=== PATIENT | female | born 1940 | race African-American/Black ===

== ENCOUNTER 2018-11-05 09:51 | Emergency (ER) | payer MEDICARE ==
[~2018-11-05] VITALS: Ht 162.6 cm; Wt 50.0 kg
[2018-11-05] MEDS ORDERED: TRAMADOL 50MG TABLET PO ONE (11:00)
[2018-11-05 17:38] VITALS: BP 162/59
== END 2018-11-05 17:38 | disposition home or self-care (01) ==
LOC: ER 09:51
DX: S43.081A Other subluxation of right shoulder joint, initial encounter (principal); M25.561 Pain in right knee; E11.22 Type 2 diabetes mellitus with diabetic chronic kidney disease; I12.9 Hypertensive chronic kidney disease with stage 1 through stage 4 chronic kidney disease, or unspecified chronic kidney disease; N18.9 Chronic kidney disease, unspecified; Z94.0 Kidney transplant status; Z88.0 Allergy status to penicillin; W01.0XXA Fall on same level from slipping, tripping and stumbling without subsequent striking against object, initial encounter; Y93.89 Activity, other specified; Y92.018 Other place in single-family (private) house as the place of occurrence of the external cause
CPT/HCPCS: 23650; 73030; 73502; 73552; 73562; 73590; 73630; 93971; 99284; A4565

== ENCOUNTER 2018-12-06 19:11 | Inpatient (IN) | payer MEDICARE ==
[~2018-12-06] VITALS: Ht 165.1 cm; Wt 60.3 kg
[2018-12-06 20:37] LABS: BASOPHILS % 1.1 % (0.0-2.0); EOSINOPHILS % 0.6 % (0.0-5.0); HEMATOCRIT. 23.5 % (36.0-48.0); HEMOGLOBIN. 7.1 g/dL (12.0-16.0); MEAN CORPUSCULAR HEMOGLOBIN 28.1 pg (28.0-32.0); MEAN CORPUSCULAR VOLUME 92.8 fL (81.0-99.0); MEAN PLATELET VOLUME 10.2 fl (7.4-10.4); MONOCYTES % 6.1 % (2.0-8.0); NEUTROPHILS % 82.2 % (40.0-76.0); PLATELET 194 x1000/uL (130-400); RED BLOOD CELL COUNT 2.54 mill/uL (4.2-5.4)
[2018-12-06 20:41] LABS: CHLORIDE 117 mEq/L (98-107); PROTHROMBIN TIME 10.4 sec (9.1-11.1)
[2018-12-06] MEDS ORDERED: LEVOFLOXACIN 750MG PREMIX 150 ML IV ONE (22:15)
[2018-12-06] MEDS ORDERED: VANCOMYCIN 1 G PREMIX 200 ML IV SCH (22:30)
[2018-12-07] VITALS (10 sets, daily range): BP systolic 136–179; BP diastolic 44–63
[2018-12-07] MEDS ORDERED: LANTUSUD SUBCUT (03:59)
[2018-12-07] MEDS ORDERED: INSLIS SUBCUT (03:59)
[2018-12-07] MEDS ORDERED: CELL5 MT (04:25)
[2018-12-07] MEDS ORDERED: LABE100T5 PO (04:25)
[2018-12-07] MEDS ORDERED: CELL5 PO (04:25)
[2018-12-07] MEDS ORDERED: PRED1TAB PO (04:25)
[2018-12-07] MEDS ORDERED: DOCU-138 PO (04:25)
[2018-12-07] MEDS ORDERED: ASPI-1159 PO (04:25)
[2018-12-07] MEDS ORDERED: AMLO5TAB4 PO (04:25)
[2018-12-07] MEDS ORDERED: DEXTROSE 50% WATER 50ML SYRINGE IV PRN (05:15)
[2018-12-07] MEDS: PANTOPRAZOLE 40MG DR TABLET PO SCH (06:42)
[2018-12-07] MEDS: BLOOD SUGAR DIAGNOSTIC STRIP TEST SCH ×4 (06:43→20:23)
[2018-12-07] MEDS: INSULIN LISPRO 100 UNITS/ML SUBCUT SCH ×4 (07:37→20:45)
[2018-12-07] MEDS ORDERED: AMLODIPINE 5MG TABLET PO SCH (09:00)
[2018-12-07] MEDS: METHYLPREDNISOLONE SOD SUCC 40 MG/ML VIAL IV SCH ×2 (09:34→20:41)
[2018-12-07] MEDS ORDERED: ACETAMINOPHEN 650MG SUPP PR PRN (14:00)
[2018-12-07] MEDS ORDERED: LORAZEPAM 0.5MG TABLET PO PRN (14:00)
[2018-12-07] MEDS ORDERED: HYDROCODONE/ACETAMINOPHEN 5/325MG TABLET PO PRN (14:00)
[2018-12-07] MEDS ORDERED: ACETAMINOPHEN 325MG TABLET PO PRN (14:00)
[2018-12-07] MEDS ORDERED: DIPHENHYDRAMINE 50MG/ML VIAL IV PRN (14:00)
[2018-12-07] MEDS ORDERED: DOCUSATE SODIUM 100MG CAPSULE PO PRN (14:00)
[2018-12-07] MEDS ORDERED: ONDANSETRON HCL 4MG/2ML INJ IV PRN (14:00)
[2018-12-07 16:54] LABS: MEAN CORPUSCULAR HEMOGLOBIN 28.4 pg (28.0-32.0); MEAN CORPUSCULAR VOLUME 95.5 fL (81.0-99.0); PLATELET 183 x1000/uL (130-400); RED BLOOD CELL COUNT 2.43 mill/uL (4.2-5.4); RED CELL DISTRIBUTION WIDTH 17.1 % (11.6-14.6)
[2018-12-07 17:04] LABS: HEMATOCRIT 23.2 % (36.0-48.0); HEMOGLOBIN 6.9 g/dL (12.0-16.0)
[2018-12-07] MEDS: SODIUM CHLORIDE 0.45% 1,000 ML IV SCH (17:19)
[2018-12-07 17:24] LABS: BG CARBOXYHEMOGLOBIN 0.2 % (0.5-1.5); BG DEOXYHEMOGLOBIN 11.4 % (0.0-5.0); BG FRACTION INSPIRED OXYGEN 21; BG HCO3 ACT 19.1 mmol/L (22.0-26.0); BG METHEMOGLOBIN 0.2 % (0.0-1.5); BG OXYGEN SATURATION 88.6 % (92.0-98.5); BG OXYHEMOGLOBIN 88.2 % (94.0-97.0); BG PCO2 35.6 mmHg (35.0-45.0); BG PH 7.347 (7.350-7.450); BG PO2 60.1 mmHg (75.0-100.0); BG SAMPLE SITE LEFT BRACHIAL; BG TOTAL HEMOGLOBIN 7.4 g/dL (12.0-18.0); BG VENT MODE ROOM AIR
[2018-12-07] MEDS ORDERED: SODIUM POLYSTYRENE SULFONATE 15 G/60 ML BOT PO NR (19:30)
[2018-12-07] MEDS: MYCOPHENOLATE MOFETIL 250MG CAPSULE PO SCH (20:42)
[2018-12-07] MEDS: AMLODIPINE 5MG TABLET PO SCH (20:42)
[2018-12-07] MEDS ORDERED: VANCOMYCIN 1 G PREMIX 200 ML IV SCH (21:00)
[2018-12-07] MEDS: CLONIDINE 0.1MG TABLET PO PRN (22:41)
[2018-12-07] MEDS ORDERED: HYDRALAZINE HCL 25MG TABLET PO NR (23:45)
[2018-12-08] VITALS (8 sets, daily range): BP systolic 137–181; BP diastolic 49–63
[2018-12-08] MEDS ORDERED: VANCOMYCIN 1,750 MG in DEXT 5% WATER 500 ML IV SCH (04:00)
[2018-12-08] MEDS ORDERED: HYDRALAZINE HCL 25MG TABLET PO SCH (06:00)
[2018-12-08] MEDS: PANTOPRAZOLE 40MG DR TABLET PO SCH (06:20)
[2018-12-08] MEDS: BLOOD SUGAR DIAGNOSTIC STRIP TEST SCH ×4 (06:21→21:00)
[2018-12-08 07:59] LABS: HEMATOCRIT 27.3 % (36.0-48.0); HEMOGLOBIN 8.6 g/dL (12.0-16.0); MEAN CORPUSCULAR HEMOGLOBIN 29.1 pg (28.0-32.0); MEAN CORPUSCULAR VOLUME 92.5 fL (81.0-99.0); PLATELET 196 x1000/uL (130-400); RED BLOOD CELL COUNT 2.95 mill/uL (4.2-5.4); RED CELL DISTRIBUTION WIDTH 16.5 % (11.6-14.6)
[2018-12-08] MEDS: CLONIDINE 0.1MG TABLET PO PRN (08:15)
[2018-12-08] MEDS: AMLODIPINE 5MG TABLET PO SCH ×2 (08:15→21:00)
[2018-12-08] MEDS: MYCOPHENOLATE MOFETIL 250MG CAPSULE PO SCH (08:15)
[2018-12-08] MEDS: INSULIN LISPRO 100 UNITS/ML SUBCUT SCH ×4 (08:23→21:01)
[2018-12-08] MEDS: METHYLPREDNISOLONE SOD SUCC 40 MG/ML VIAL IV SCH ×2 (08:24→22:37)
[2018-12-08] MEDS ORDERED: HYDRALAZINE HCL 25MG TABLET PO ONE (10:30)
[2018-12-08] MEDS: LEVOFLOXACIN 250MG TABLET PO SCH (11:06)
[2018-12-08 12:16] LABS: TOTAL IRON BINDING CAPACITY 211 ug/dL (250-450)
[2018-12-08] MEDS: HYDRALAZINE HCL 25MG TABLET PO SCH ×2 (13:20→18:15)
[2018-12-08] MEDS: SODIUM CHLORIDE 0.45% 1,000 ML IV SCH (15:32)
[2018-12-08] MEDS ORDERED: SORBITOL 70% SOLN 30ML PO NR ×2 (17:00→21:00)
[2018-12-08] MEDS: FERROUS SULFATE 325MG TABLET PO SCH (18:15)
[2018-12-08] MEDS ORDERED: EPOETIN ALFA 10000UNITS/ML VIAL SUBCUT NR (21:00)
[2018-12-08] MEDS: TACROLIMUS 1MG CAPSULE PO SCH (21:00)
[2018-12-08 21:36] LABS: CLARITY URINE CLOUDY (CLEAR); COLOR URINE YELLOW (YELLOW); KETONES URINE NEGATIVE (NEGATIVE); LEUKOCYTE ESTERASE URINE NEGATIVE (NEGATIVE); NITRITE URINE NEGATIVE (NEGATIVE); OCCULT BLOOD URINE NEGATIVE (NEGATIVE); PROTEIN URINE 4+ (NEGATIVE); UROBILINOGEN URINE 0.2 E.U./dL (0.2-1.0)
[2018-12-08] MEDS ORDERED: LORAZEPAM 0.5MG TABLET PO PRN (22:00)
[2018-12-09] VITALS: BP 183/63
[2018-12-09 00:03] LABS: HEMATOCRIT 26.2 % (36.0-48.0); HEMOGLOBIN 8.3 g/dL (12.0-16.0)
[2018-12-09] MEDS: CLONIDINE 0.1MG TABLET PO PRN (01:36)
[2018-12-09] MEDS: SODIUM CHLORIDE 0.45% 1,000 ML IV SCH ×3 (01:37→20:52)
[2018-12-09] MEDS: HYDRALAZINE HCL 25MG TABLET PO SCH ×5 (02:06→23:53)
[2018-12-09] MEDS: IPRATROPIUM/ALBUTEROL 0.5-3(2.5)MG/3ML NEB HHN SCH ×4 (02:29→20:11)
[2018-12-09 04:00] VITALS: BP 179/64
[2018-12-09] MEDS: PANTOPRAZOLE 40MG DR TABLET PO SCH (06:27)
[2018-12-09] MEDS: BLOOD SUGAR DIAGNOSTIC STRIP TEST SCH ×4 (06:27→20:43)
[2018-12-09 08:00] VITALS: BP 162/54
[2018-12-09 08:26] LABS: HEMATOCRIT. 27.2 % (36.0-48.0); HEMOGLOBIN. 8.4 g/dL (12.0-16.0); MEAN CORPUSCULAR HEMOGLOBIN 28.8 pg (28.0-32.0); MEAN CORPUSCULAR VOLUME 93.9 fL (81.0-99.0); MEAN PLATELET VOLUME 10.2 fl (7.4-10.4); PLATELET 188 x1000/uL (130-400); RED CELL DISTRIBUTION WIDTH 16.4 % (11.6-14.6)
[2018-12-09] MEDS: TACROLIMUS 1MG CAPSULE PO SCH ×2 (08:39→20:43)
[2018-12-09] MEDS: METHYLPREDNISOLONE SOD SUCC 40 MG/ML VIAL IV SCH (08:39)
[2018-12-09] MEDS: FERROUS SULFATE 325MG TABLET PO SCH ×2 (08:40→18:01)
[2018-12-09] MEDS: AMLODIPINE 5MG TABLET PO SCH ×2 (08:40→20:43)
[2018-12-09] MEDS ORDERED: INSULIN GLARGINE UD 100 UNITS/ML SYR SUBCUT ONE (10:00)
[2018-12-09] MEDS: INSULIN LISPRO 100 UNITS/ML SUBCUT SCH ×3 (10:07→20:50)
[2018-12-09 12:00] VITALS: BP 171/55
[2018-12-09 12:16] LABS: PHOSPHORUS 4.4 mg/dL (2.5-4.9)
[2018-12-09] MEDS ORDERED: POTASSIUM CHLORIDE 20MEQ TABLET SR PO NR (12:45)
[2018-12-09] MEDS ORDERED: INSULIN LISPRO 100 UNITS/ML SUBCUT NR (13:00)
[2018-12-09] MEDS: CITRIC ACID/SODIUM CITRATE SOLN 30ML UDC PO SCH ×2 (13:23→18:01)
[2018-12-09 16:00] VITALS: BP 176/57
[2018-12-09 20:23] VITALS: BP 174/59
[2018-12-10 00:06] VITALS: BP 171/66
[2018-12-10 04:00] VITALS: BP 195/65
[2018-12-10] MEDS: IPRATROPIUM/ALBUTEROL 0.5-3(2.5)MG/3ML NEB HHN SCH ×4 (04:13→15:44)
[2018-12-10] MEDS: HYDRALAZINE HCL 25MG TABLET PO SCH ×3 (05:14→17:56)
[2018-12-10] MEDS: SODIUM CHLORIDE 0.45% 1,000 ML IV SCH (05:16)
[2018-12-10] MEDS: PANTOPRAZOLE 40MG DR TABLET PO SCH (06:20)
[2018-12-10] MEDS: BLOOD SUGAR DIAGNOSTIC STRIP TEST SCH ×4 (06:30→21:00)
[2018-12-10 07:13] LABS: HEMATOCRIT. 29.2 % (36.0-48.0); HEMOGLOBIN. 9.1 g/dL (12.0-16.0); MEAN CORPUSCULAR HEMOGLOBIN 28.4 pg (28.0-32.0); MEAN PLATELET VOLUME 10.6 fl (7.4-10.4); PLATELET 211 x1000/uL (130-400); RED BLOOD CELL COUNT 3.21 mill/uL (4.2-5.4); RED CELL DISTRIBUTION WIDTH 16.2 % (11.6-14.6)
[2018-12-10 07:38] LABS: PHOSPHORUS 3.9 mg/dL (2.5-4.9)
[2018-12-10 07:59] VITALS: BP 169/65
[2018-12-10 09:08] LABS: PLATELET ESTIMATE NORMAL
[2018-12-10] MEDS: FERROUS SULFATE 325MG TABLET PO SCH ×2 (09:10→17:56)
[2018-12-10] MEDS: TACROLIMUS 1MG CAPSULE PO SCH ×2 (09:11→21:00)
[2018-12-10] MEDS: AMLODIPINE 5MG TABLET PO SCH (09:11)
[2018-12-10] MEDS: CITRIC ACID/SODIUM CITRATE SOLN 30ML UDC PO SCH ×3 (09:12→17:57)
[2018-12-10] MEDS: METHYLPREDNISOLONE SOD SUCC 40 MG/ML VIAL IV SCH ×2 (09:12→18:12)
[2018-12-10] MEDS: INSULIN LISPRO 100 UNITS/ML SUBCUT SCH ×4 (09:20→21:28)
[2018-12-10] MEDS ORDERED: INSULIN GLARGINE UD 100 UNITS/ML SYR SUBCUT SCH (10:00)
[2018-12-10 10:02] LABS: BG BASE EXCESS -7.4 mmol/L (-2.0-2.0); BG CARBOXYHEMOGLOBIN 0.3 % (0.5-1.5); BG DEOXYHEMOGLOBIN 7.6 % (0.0-5.0); BG FRACTION INSPIRED OXYGEN 21; BG METHEMOGLOBIN 0.3 % (0.0-1.5); BG OXYGEN SATURATION 92.4 % (92.0-98.5); BG OXYHEMOGLOBIN 91.8 % (94.0-97.0); BG PCO2 41.8 mmHg (35.0-45.0); BG PH 7.275 (7.350-7.450); BG PO2 68.1 mmHg (75.0-100.0); BG SAMPLE SITE RIGHT RADIAL; BG TOTAL HEMOGLOBIN 10.2 g/dL (12.0-18.0); BG VENT MODE ROOM AIR
[2018-12-10 11:00] LABS: PLATELET ESTIMATE NORMAL
[2018-12-10] MEDS: LEVOFLOXACIN 250MG TABLET PO SCH (11:21)
[2018-12-10] MEDS ORDERED: INSULIN GLARGINE UD 100 UNITS/ML SYR SUBCUT NR (12:00)
[2018-12-10 12:11] VITALS: BP 175/64
[2018-12-10] MEDS: METOPROLOL TARTRATE 25MG TABLET PO SCH ×2 (13:15→21:00)
[2018-12-10] MEDS: NIFEDIPINE XL 30MG TAB PO SCH ×2 (13:15→21:00)
[2018-12-10] MEDS ORDERED: BISACODYL 10MG SUPP PR NR (16:00)
[2018-12-10 16:18] VITALS: BP 156/62
[2018-12-10] MEDS ORDERED: VANCOMYCIN 750 MG PREMIX 150 ML IV NR (17:00)
[2018-12-10] MEDS: METOCLOPRAMIDE HCL 10MG/2ML VIAL IV SCH (18:12)
[2018-12-10] MEDS: SORBITOL 70% SOLN 30ML PO SCH (19:26)
[2018-12-10 20:08] VITALS: BP 160/57
[2018-12-11 00:22] VITALS: BP 166/59
[2018-12-11] MEDS: SORBITOL 70% SOLN 30ML PO SCH ×2 (00:54→06:32)
[2018-12-11] MEDS: METOCLOPRAMIDE HCL 10MG/2ML VIAL IV SCH ×3 (00:54→12:38)
[2018-12-11] MEDS: HYDRALAZINE HCL 25MG TABLET PO SCH ×5 (00:54→23:53)
[2018-12-11] MEDS: IPRATROPIUM/ALBUTEROL 0.5-3(2.5)MG/3ML NEB HHN SCH ×6 (02:19→20:39)
[2018-12-11 04:44] VITALS: BP 166/60
[2018-12-11 06:17] LABS: BASOPHILS % 0.5 % (0.0-2.0); HEMOGLOBIN. 10.3 g/dL (12.0-16.0); LYMPHOCYTES % 9.2 % (20.0-50.0); MEAN CORPUSCULAR HEMOGLOBIN 28.8 pg (28.0-32.0); MEAN CORPUSCULAR VOLUME 89.9 fL (81.0-99.0); NEUTROPHILS % 77.3 % (40.0-76.0); PLATELET 234 x1000/uL (130-400); RED BLOOD CELL COUNT 3.57 mill/uL (4.2-5.4); RED CELL DISTRIBUTION WIDTH 15.7 % (11.6-14.6)
[2018-12-11] MEDS: PANTOPRAZOLE 40MG DR TABLET PO SCH (06:31)
[2018-12-11] MEDS: BLOOD SUGAR DIAGNOSTIC STRIP TEST SCH ×4 (06:33→21:00)
[2018-12-11] MEDS: INSULIN LISPRO 100 UNITS/ML SUBCUT SCH ×4 (07:50→21:00)
[2018-12-11 07:59] LABS: PHOSPHORUS 3.8 mg/dL (2.5-4.9)
[2018-12-11] MEDS: NIFEDIPINE XL 30MG TAB PO SCH (09:06)
[2018-12-11] MEDS: CITRIC ACID/SODIUM CITRATE SOLN 30ML UDC PO SCH ×4 (09:06→18:31)
[2018-12-11] MEDS: FERROUS SULFATE 325MG TABLET PO SCH ×3 (09:06→18:33)
[2018-12-11] MEDS: METOPROLOL TARTRATE 25MG TABLET PO SCH (09:06)
[2018-12-11] MEDS: TACROLIMUS 1MG CAPSULE PO SCH ×2 (09:08→22:10)
[2018-12-11] MEDS ORDERED: INSULIN GLARGINE UD 100 UNITS/ML SYR SUBCUT SCH (10:00)
[2018-12-11 12:13] VITALS: BP 177/58
[2018-12-11] MEDS ORDERED: POTASSIUM CHLORIDE INJ 40 MEQ in DEXT 5% WATER 250 ML IV NR (12:30)
[2018-12-11] MEDS: CLONIDINE 0.1MG TABLET PO PRN (12:39)
[2018-12-11] MEDS ORDERED: METOCLOPRAMIDE HCL 10MG/2ML VIAL IV NR (12:45)
[2018-12-11] MEDS ORDERED: SORBITOL 70% SOLN 30ML PO NR (12:45)
[2018-12-11] MEDS ORDERED: POTASSIUM CHLORIDE 20MEQ TABLET SR PO NR (12:45)
[2018-12-11] MEDS ORDERED: NIFEDIPINE XL 30MG TAB PO NR (13:45)
[2018-12-11] MEDS ORDERED: BACTERIOSTATIC SODIUM CHLORIDE 0.9% 30ML VIAL IJ ONE (13:46)
[2018-12-11] MEDS ORDERED: SIMETHICONE 40 MG/0.6 ML 30ML ONE (13:46)
[2018-12-11 15:19] VITALS: BP 144/61
[2018-12-11 16:54] VITALS: BP 174/59
[2018-12-11] MEDS ORDERED: MIDAZOLAM HCL 5 MG/5 ML VIAL IV PRN (17:02)
[2018-12-11] MEDS ORDERED: FENTANYL CITRATE/PF 50MCG/ML 2ML VIAL ONE (17:06)
[2018-12-11] MEDS ORDERED: MIDAZOLAM HCL 5 MG/5 ML VIAL ONE (17:06)
[2018-12-11] MEDS ORDERED: HYDRALAZINE 20MG/ML VIAL IV ONE (17:15)
[2018-12-11] MEDS ORDERED: HYDRALAZINE 20MG/ML VIAL ONE (17:20)
[2018-12-11] MEDS ORDERED: HYDROCODONE/ACETAMINOPHEN 5/325MG TABLET PO PRN (18:00)
[2018-12-11 20:00] VITALS: BP 150/51
[2018-12-11] MEDS ORDERED: LORAZEPAM 0.5MG TABLET PO PRN (22:00)
[2018-12-11] MEDS: METOPROLOL TARTRATE 50MG TABLET PO SCH (22:10)
[2018-12-11] MEDS: NIFEDIPINE XL 60MG TAB PO SCH (22:10)
[2018-12-11] MEDS: HYDROCORTISONE ACETATE 25MG SUPP PR SCH (22:17)
[2018-12-12] VITALS: BP 160/52
[2018-12-12] MEDS: IPRATROPIUM/ALBUTEROL 0.5-3(2.5)MG/3ML NEB HHN SCH ×3 (00:35→07:52)
[2018-12-12 04:00] VITALS: BP 153/49
[2018-12-12] MEDS: PANTOPRAZOLE 40MG DR TABLET PO SCH (06:35)
[2018-12-12] MEDS: BLOOD SUGAR DIAGNOSTIC STRIP TEST SCH ×2 (06:35→12:17)
[2018-12-12] MEDS: HYDRALAZINE HCL 25MG TABLET PO SCH ×2 (06:35→12:42)
[2018-12-12] MEDS: INSULIN LISPRO 100 UNITS/ML SUBCUT SCH ×2 (07:42→12:44)
[2018-12-12 08:00] VITALS: BP 163/55
[2018-12-12] MEDS: FERROUS SULFATE 325MG TABLET PO SCH (08:21)
[2018-12-12] MEDS: TACROLIMUS 1MG CAPSULE PO SCH (08:21)
[2018-12-12] MEDS: NIFEDIPINE XL 60MG TAB PO SCH (08:21)
[2018-12-12] MEDS: CITRIC ACID/SODIUM CITRATE SOLN 30ML UDC PO SCH ×2 (08:22→12:45)
[2018-12-12] MEDS: HYDROCORTISONE ACETATE 25MG SUPP PR SCH (08:22)
[2018-12-12] MEDS: METOPROLOL TARTRATE 50MG TABLET PO SCH (08:22)
[2018-12-12] MEDS ORDERED: PREDNISONE 1MG TABLET PO SCH (09:00)
[2018-12-12 09:05] VITALS: BP 163/55
[2018-12-12] MEDS: LEVOFLOXACIN 250MG TABLET PO SCH (12:41)
== END 2018-12-12 13:10 | disposition home or self-care (01) | DRG 871 ==
LOC: ER 19:11 → 6WST 22:25 → EDBEDREQTM 23:08 → EDBEDREQ 23:08 → ENRESERV 23:16
PROVIDERS: ADMIT Internal Medicine; ATTEND Internal Medicine
PROC: 30233N1 Transfusion of Nonautologous Red Blood Cells into Peripheral Vein, Percutaneous Approach (ICD-10-PCS; 2018-12-07)
PROC: 0DJD8ZZ Inspection of Lower Intestinal Tract, Via Natural or Artificial Opening Endoscopic (ICD-10-PCS; principal; 2018-12-11)
DX: A41.9 Sepsis, unspecified organism (principal); J96.91 Respiratory failure, unspecified with hypoxia; J18.1 Lobar pneumonia, unspecified organism; N17.0 Acute kidney failure with tubular necrosis; E44.0 Moderate protein-calorie malnutrition; K92.2 Gastrointestinal hemorrhage, unspecified; E87.0 Hyperosmolality and hypernatremia; I31.3 Pericardial effusion (noninflammatory); E87.2 Acidosis; N18.4 Chronic kidney disease, stage 4 (severe); I13.0 Hypertensive heart and chronic kidney disease with heart failure and stage 1 through stage 4 chronic kidney disease, or unspecified chronic kidney disease; Z94.0 Kidney transplant status; D63.8 Anemia in other chronic diseases classified elsewhere; I50.9 Heart failure, unspecified; E11.65 Type 2 diabetes mellitus with hyperglycemia; E11.22 Type 2 diabetes mellitus with diabetic chronic kidney disease; E11.40 Type 2 diabetes mellitus with diabetic neuropathy, unspecified; I27.20 Pulmonary hypertension, unspecified; K64.8 Other hemorrhoids; E87.6 Hypokalemia; Z68.22 Body mass index [BMI] 22.0-22.9, adult; Z88.0 Allergy status to penicillin; Z82.49 Family history of ischemic heart disease and other diseases of the circulatory system; Z83.3 Family history of diabetes mellitus; Z79.899 Other long term (current) drug therapy; Z79.82 Long term (current) use of aspirin
CPT/HCPCS: 36415; 36600; 71045; 71250; 78582; 80048; 80202; 82375; 82550; 82805; 82962; 83036; 83540; 83550; 83605; 83735; 83880; 84100; 84484; 85014; 85018; 85027; 85379; 86850; 86900; 86920; 87804; 93005; 93306; 93970; 94640; 94660; 96365; 96367; 97116; 97162; 97530; 99285; A9558; C1893; J0360; J0885; J1200; J1815; J1956; J2250; J2765; J2920; J3010; J3370; J3480; J3490; J7050; J7060; J7507; J7512; J7517; J7620; P9016

== ENCOUNTER 2019-02-05 10:57 | Inpatient (IN) | payer MEDICARE ==
[~2019-02-05] VITALS: Ht 162.6 cm; Wt 70.8 kg
[~2019-02-05 10:57] MED LIST: AMLO5TAB4 PO; ASPI-1393 PO; CELL5 PO; DOCU-138 PO; INSLIS SUBCUT; LANTUSUD SUBCUT; PRED1TAB PO
[2019-02-05 12:47] LABS: HEMATOCRIT. 27.5 % (36.0-48.0); HEMOGLOBIN. 8.3 g/dL (12.0-16.0); MEAN CORPUSCULAR HEMOGLOBIN 28.8 pg (28.0-32.0); MEAN CORPUSCULAR VOLUME 95.9 fL (81.0-99.0); PLATELET 164 x1000/uL (130-400); RED BLOOD CELL COUNT 2.87 mill/uL (4.2-5.4); RED CELL DISTRIBUTION WIDTH 17.8 % (11.6-14.6)
[2019-02-05 12:55] LABS: INR 1.1; PROTHROMBIN TIME 11.4 sec (9.6-11.0)
[2019-02-05 12:57] LABS: CHLORIDE 125 mEq/L (98-107)
[2019-02-05 13:19] LABS: PLATELET ESTIMATE NORMAL
[2019-02-05 13:20] LABS: BG BASE EXCESS -9.8 mmol/L (-2.0-2.0); BG CARBOXYHEMOGLOBIN 1.2 % (0.5-1.5); BG DEOXYHEMOGLOBIN 6.8 % (0.0-5.0); BG FRACTION INSPIRED OXYGEN 36; BG HCO3 ACT 18.5 mmol/L (22.0-26.0); BG METHEMOGLOBIN 0.3 % (0.0-1.5); BG OXYGEN SATURATION 93.1 % (92.0-98.5); BG OXYHEMOGLOBIN 91.7 % (94.0-97.0); BG PH 7.161 (7.350-7.450); BG PO2 80.3 mmHg (75.0-100.0); BG SAMPLE SITE LEFT BRACHIAL; BG TOTAL HEMOGLOBIN 9.1 g/dL (12.0-18.0); BG VENT MODE NASAL CANNULA
[2019-02-05] MEDS ORDERED: SODIUM BICARBONATE 8.4% 1 MEQ/ML 50ML SYR IV ONE ×3 (13:30→17:45)
[2019-02-05] MEDS ORDERED: IPRATROPIUM/ALBUTEROL 0.5-3(2.5)MG/3ML NEB HHN ONE ×2 (13:30→13:45)
[2019-02-05] MEDS ORDERED: LEVOFLOXACIN 750MG PREMIX 150 ML IV ONE (15:15)
[2019-02-05] MEDS ORDERED: FUROSEMIDE 40MG/4ML VIAL IVP ONE (15:15)
[2019-02-05 16:57] LABS: BG BASE EXCESS -8.5 mmol/L (-2.0-2.0); BG CARBOXYHEMOGLOBIN 0.7 % (0.5-1.5); BG DEOXYHEMOGLOBIN 11.6 % (0.0-5.0); BG HCO3 ACT 18.7 mmol/L (22.0-26.0); BG METHEMOGLOBIN 0.2 % (0.0-1.5); BG OXYGEN SATURATION 88.3 % (92.0-98.5); BG OXYHEMOGLOBIN 87.5 % (94.0-97.0); BG PCO2 46.4 mmHg (35.0-45.0); BG PH 7.223 (7.350-7.450); BG PO2 61.4 mmHg (75.0-100.0); BG SAMPLE SITE LEFT BRACHIAL; BG TOTAL HEMOGLOBIN 8.4 g/dL (12.0-18.0); BG VENT MODE NASAL CANNULA
[2019-02-05] MEDS ORDERED: ACETAMINOPHEN 650MG SUPP PR PRN (17:00)
[2019-02-05] MEDS ORDERED: DEXTROSE 50% WATER 50ML SYRINGE IV PRN (17:00)
[2019-02-05] MEDS: BLOOD SUGAR DIAGNOSTIC STRIP TEST SCH ×2 (17:00→21:00)
[2019-02-05] MEDS ORDERED: GUAIFENESIN 200MG/10ML SUGAR FREE UDC PO PRN (17:00)
[2019-02-05] MEDS ORDERED: DEXTROSE 5% WATER 1,000 ML IV SCH (17:00)
[2019-02-05] MEDS ORDERED: ONDANSETRON HCL 4MG/2ML INJ IV PRN (17:00)
[2019-02-05] MEDS ORDERED: HYDROCODONE/ACETAMINOPHEN 5/325MG TABLET PO PRN (17:00)
[2019-02-05] MEDS ORDERED: IPRATROPIUM/ALBUTEROL 0.5-3(2.5)MG/3ML NEB INH PRN (17:00)
[2019-02-05] MEDS ORDERED: DIPHENHYDRAMINE 50MG/ML VIAL IV PRN (17:00)
[2019-02-05] MEDS ORDERED: DOCUSATE SODIUM 100MG CAPSULE PO PRN (17:00)
[2019-02-05] MEDS ORDERED: LORAZEPAM 0.5MG TABLET PO PRN (17:00)
[2019-02-05] MEDS: IPRATROPIUM/ALBUTEROL 0.5-3(2.5)MG/3ML NEB INH SCH (17:00)
[2019-02-05] MEDS ORDERED: LEVOFLOXACIN 500MG PREMIX 100 ML IV SCH (17:00)
[2019-02-05] MEDS ORDERED: MAGNESIUM/ALUMINUM HYDROXIDE/SIMETHICONE 30ML UDC PO PRN (17:00)
[2019-02-05] MEDS ORDERED: ACETAMINOPHEN 325MG TABLET PO PRN (17:00)
[2019-02-05] MEDS ORDERED: NA PHOS,M-B/NA PHOS,DI-BA ENEMA 118ML PR PRN (17:00)
[2019-02-05 18:18] LABS: BG BILEVEL POS AIRWAY PRESSURE 15/5; BG CARBOXYHEMOGLOBIN 0.6 % (0.5-1.5); BG DEOXYHEMOGLOBIN 7.1 % (0.0-5.0); BG HCO3 ACT 17.9 mmol/L (22.0-26.0); BG METHEMOGLOBIN 0.2 % (0.0-1.5); BG OXYGEN SATURATION 92.8 % (92.0-98.5); BG OXYHEMOGLOBIN 92.1 % (94.0-97.0); BG PCO2 43.3 mmHg (35.0-45.0); BG PH 7.234 (7.350-7.450); BG PO2 73.9 mmHg (75.0-100.0); BG SAMPLE SITE LEFT BRACHIAL; BG TOTAL HEMOGLOBIN 8.6 g/dL (12.0-18.0); BG VENT MODE MASK - BIPAP; BG VENT RATE 14 set
[2019-02-05] MEDS: INSULIN LISPRO 100 UNITS/ML SUBCUT SCH ×2 (18:20→21:00)
[2019-02-05] MEDS: CLONIDINE 0.1MG TABLET PO PRN (19:09)
[2019-02-05] MEDS: SODIUM BICARBONATE 100 MEQ in DEXTROSE 5% WATER 1,000 ML IV SCH (20:00)
[2019-02-05] MEDS: METHYLPREDNISOLONE SOD SUCC 40 MG/ML VIAL IV SCH (20:27)
[2019-02-05 20:39] LABS: CLARITY URINE CLOUDY (CLEAR); COLOR URINE YELLOW (YELLOW); KETONES URINE TRACE (NEGATIVE); LEUKOCYTE ESTERASE URINE NEGATIVE (NEGATIVE); NITRITE URINE NEGATIVE (NEGATIVE); OCCULT BLOOD URINE NEGATIVE (NEGATIVE); PH URINE 5.5 (4.5-8.0); PROTEIN URINE 4+ (NEGATIVE); SPECIFIC GRAVITY URINE 1.018 (1.005-1.030); UROBILINOGEN URINE 0.2 E.U./dL (0.2-1.0)
[2019-02-05 21:26] LABS: *AMPHETAMINES SCREEN URINE NEGATIVE (NEGATIVE); *BARBITURATES SCREEN URINE NEGATIVE (NEGATIVE)
[2019-02-05 21:27] LABS: *BENZODIAZEPINES SCREEN URINE NEGATIVE (NEGATIVE); *COCAINE SCREEN URINE NEGATIVE (NEGATIVE); CANNABINOID URINE SCREEN NEGATIVE (NEGATIVE); METHADONE URINE SCREEN NEGATIVE (NEGATIVE); OPIATES URINE SCREEN PRESUMTIVE POSITIVE (NEGATIVE); PHENCYCLIDINE URINE SCREEN NEGATIVE (NEGATIVE)
[2019-02-05] MEDS: HYDRALAZINE 20MG/ML VIAL IV PRN (23:14)
[2019-02-06] VITALS (13 sets, daily range): BP systolic 125–179; BP diastolic 40–95
[2019-02-06] MEDS: IPRATROPIUM/ALBUTEROL 0.5-3(2.5)MG/3ML NEB INH SCH ×4 (01:05→15:00)
[2019-02-06] MEDS: SODIUM BICARBONATE 100 MEQ in DEXTROSE 5% WATER 1,000 ML IV SCH (02:20)
[2019-02-06] MEDS: HYDRALAZINE 20MG/ML VIAL IV PRN (05:52)
[2019-02-06 06:38] LABS: HEMATOCRIT. 25.9 % (36.0-48.0); MEAN CORPUSCULAR HEMOGLOBIN 29.3 pg (28.0-32.0); MEAN CORPUSCULAR VOLUME 94.4 fL (81.0-99.0); MEAN PLATELET VOLUME 9.8 fl (7.4-10.4); PLATELET 136 x1000/uL (130-400); RED BLOOD CELL COUNT 2.75 mill/uL (4.2-5.4); RED CELL DISTRIBUTION WIDTH 17.2 % (11.6-14.6)
[2019-02-06 07:00] LABS: CHLORIDE 121 mEq/L (98-107)
[2019-02-06 07:10] LABS: LDL CHOLESTEROL 72 mg/dL (5-100)
[2019-02-06 07:11] LABS: CREATINE KINASE 70 IU/L (26-192); CREATINE KINASE MB FRACTION 2.2 ng/mL (0.5-3.6); HDL CHOLESTEROL 42 mg/dL (40-59); T4 FREE 1.04 ng/dL (0.76-1.46)
[2019-02-06] MEDS: BLOOD SUGAR DIAGNOSTIC STRIP TEST SCH ×4 (08:02→21:59)
[2019-02-06] MEDS: METHYLPREDNISOLONE SOD SUCC 40 MG/ML VIAL IV SCH ×2 (08:51→20:24)
[2019-02-06] MEDS: FAMOTIDINE 20MG/2ML VIAL IV SCH (08:51)
[2019-02-06] MEDS: INSULIN LISPRO 100 UNITS/ML SUBCUT SCH ×4 (08:53→21:00)
[2019-02-06 08:59] LABS: BG BASE EXCESS -8.3 mmol/L (-2.0-2.0); BG BILEVEL POS AIRWAY PRESSURE ST=15/5; BG CARBOXYHEMOGLOBIN 0.2 % (0.5-1.5); BG FRACTION INSPIRED OXYGEN 50; BG METHEMOGLOBIN 0.3 % (0.0-1.5); BG OXYHEMOGLOBIN 97.5 % (94.0-97.0); BG PH 7.271 (7.350-7.450); BG PRESSURE SUPPORT 10; BG SAMPLE SITE LEFT BRACHIAL; BG VENT MODE MASK - BIPAP; BG VENT RATE 14 set
[2019-02-06] MEDS ORDERED: IPRATROPIUM/ALBUTEROL 0.5-3(2.5)MG/3ML NEB HHN ONE (11:00)
[2019-02-06] MEDS ORDERED: SODIUM BICARBONATE 8.4% 1 MEQ/ML 50ML SYR IV ONE (11:00)
[2019-02-06] MEDS ORDERED: DEXTROSE 50% WATER 50ML SYRINGE IV ONE (11:30)
[2019-02-06] MEDS ORDERED: INSULIN REGULAR (HUMULIN R) UD 100 UNITS/ML SYR IV NR (11:30)
[2019-02-06] MEDS ORDERED: SODIUM POLYSTYRENE SULFONATE 15 G/60 ML BOT PO NR (12:00)
[2019-02-06 14:33] LABS: PLATELET ESTIMATE NORMAL
[2019-02-06] MEDS: TACROLIMUS 1MG CAPSULE PO SCH (17:28)
[2019-02-06] MEDS: MYCOPHENOLATE MOFETIL 500MG TABLET PO SCH (21:59)
[2019-02-07] VITALS (16 sets, daily range): BP systolic 104–190; BP diastolic 48–93
[2019-02-07] MEDS: IPRATROPIUM/ALBUTEROL 0.5-3(2.5)MG/3ML NEB INH SCH ×4 (03:04→21:53)
[2019-02-07 06:18] LABS: HEMATOCRIT. 27.3 % (36.0-48.0); HEMOGLOBIN. 8.6 g/dL (12.0-16.0); MEAN CORPUSCULAR HEMOGLOBIN 29.1 pg (28.0-32.0); MEAN CORPUSCULAR VOLUME 92.3 fL (81.0-99.0); MEAN PLATELET VOLUME 11.5 fl (7.4-10.4); PLATELET 185 x1000/uL (130-400); RED BLOOD CELL COUNT 2.96 mill/uL (4.2-5.4); RED CELL DISTRIBUTION WIDTH 17.5 % (11.6-14.6)
[2019-02-07 08:02] LABS: BG BASE EXCESS -4.1 mmol/L (-2.0-2.0); BG CARBOXYHEMOGLOBIN 0.3 % (0.5-1.5); BG DEOXYHEMOGLOBIN 6.8 % (0.0-5.0); BG FRACTION INSPIRED OXYGEN 28; BG HCO3 ACT 21.5 mmol/L (22.0-26.0); BG METHEMOGLOBIN 0.2 % (0.0-1.5); BG OXYGEN SATURATION 93.2 % (92.0-98.5); BG OXYHEMOGLOBIN 92.7 % (94.0-97.0); BG PCO2 41.1 mmHg (35.0-45.0); BG PH 7.336 (7.350-7.450); BG PO2 71.9 mmHg (75.0-100.0); BG SAMPLE SITE LEFT BRACHIAL; BG TOTAL HEMOGLOBIN 8.9 g/dL (12.0-18.0); BG VENT MODE NASAL CANNULA
[2019-02-07] MEDS: BLOOD SUGAR DIAGNOSTIC STRIP TEST SCH ×4 (08:09→21:19)
[2019-02-07] MEDS: FAMOTIDINE 20MG/2ML VIAL IV SCH (08:26)
[2019-02-07] MEDS: METHYLPREDNISOLONE SOD SUCC 40 MG/ML VIAL IV SCH ×2 (08:26→20:42)
[2019-02-07] MEDS: TACROLIMUS 1MG CAPSULE PO SCH ×2 (08:27→17:31)
[2019-02-07] MEDS: MYCOPHENOLATE MOFETIL 500MG TABLET PO SCH ×2 (08:27→21:33)
[2019-02-07] MEDS: INSULIN LISPRO 100 UNITS/ML SUBCUT SCH ×4 (08:35→21:35)
[2019-02-07] MEDS: HYDRALAZINE 20MG/ML VIAL IV PRN (09:55)
[2019-02-07 10:43] LABS: PLATELET ESTIMATE NORMAL
[2019-02-07] MEDS ORDERED: AMLODIPINE 5MG TABLET PO NR (11:00)
[2019-02-07] MEDS ORDERED: SODIUM POLYSTYRENE SULFONATE 15 G/60 ML BOT PO NR (12:30)
[2019-02-07] MEDS ORDERED: DEXTROSE 5% WATER 1,000 ML IV SCH (12:45)
[2019-02-07] MEDS: CITRIC ACID/SODIUM CITRATE SOLN 15ML UDC PO SCH ×2 (12:53→17:31)
[2019-02-07] MEDS: LEVOFLOXACIN 250MG PREMIX 50 ML IV SCH (14:07)
[2019-02-07] MEDS ORDERED: LEVOFLOXACIN 250MG PREMIX 50 ML IV SCH (16:00)
[2019-02-07] MEDS ORDERED: EPOETIN ALFA 10000UNITS/ML VIAL SUBCUT NR (21:00)
[2019-02-08] VITALS (16 sets, daily range): BP systolic 120–213; BP diastolic 38–94
[2019-02-08] MEDS: IPRATROPIUM/ALBUTEROL 0.5-3(2.5)MG/3ML NEB INH SCH ×4 (02:52→21:51)
[2019-02-08] MEDS: HYDRALAZINE 20MG/ML VIAL IV PRN (06:38)
[2019-02-08] MEDS: BLOOD SUGAR DIAGNOSTIC STRIP TEST SCH ×4 (07:30→21:59)
[2019-02-08 07:34] LABS: HEMATOCRIT 25.5 % (36.0-48.0); HEMOGLOBIN 7.9 g/dL (12.0-16.0); MEAN CORPUSCULAR VOLUME 93.4 fL (81.0-99.0); PLATELET 174 x1000/uL (130-400); RED BLOOD CELL COUNT 2.73 mill/uL (4.2-5.4); RED CELL DISTRIBUTION WIDTH 17.3 % (11.6-14.6)
[2019-02-08] MEDS: INSULIN LISPRO 100 UNITS/ML SUBCUT SCH ×4 (08:28→22:08)
[2019-02-08 08:29] LABS: BG BASE EXCESS -3.9 mmol/L (-2.0-2.0); BG CARBOXYHEMOGLOBIN 0.7 % (0.5-1.5); BG DEOXYHEMOGLOBIN 5.2 % (0.0-5.0); BG FRACTION INSPIRED OXYGEN 32; BG HCO3 ACT 20.9 mmol/L (22.0-26.0); BG METHEMOGLOBIN 0.2 % (0.0-1.5); BG OXYGEN SATURATION 94.8 % (92.0-98.5); BG OXYHEMOGLOBIN 93.9 % (94.0-97.0); BG PCO2 36.8 mmHg (35.0-45.0); BG PH 7.373 (7.350-7.450); BG PO2 74.8 mmHg (75.0-100.0); BG SAMPLE SITE LEFT BRACHIAL; BG TOTAL HEMOGLOBIN 8.7 g/dL (12.0-18.0); BG VENT MODE NASAL CANNULA
[2019-02-08] MEDS ORDERED: FUROSEMIDE 20MG/2ML VIAL IVP NR (08:30)
[2019-02-08] MEDS ORDERED: AMLODIPINE 5MG TABLET PO SCH (09:00)
[2019-02-08] MEDS: MYCOPHENOLATE MOFETIL 500MG TABLET PO SCH ×2 (09:32→21:59)
[2019-02-08] MEDS: CITRIC ACID/SODIUM CITRATE SOLN 15ML UDC PO SCH ×3 (09:32→17:08)
[2019-02-08] MEDS: FAMOTIDINE 20MG/2ML VIAL IV SCH (09:32)
[2019-02-08] MEDS: TACROLIMUS 1MG CAPSULE PO SCH ×2 (09:32→17:08)
[2019-02-08] MEDS: METHYLPREDNISOLONE SOD SUCC 40 MG/ML VIAL IV SCH ×2 (10:58→21:59)
[2019-02-08] MEDS: CLONIDINE 0.1MG TABLET PO SCH ×2 (12:53→21:59)
[2019-02-08] MEDS: AMLODIPINE 5MG TABLET PO SCH (21:59)
[2019-02-09] VITALS (19 sets, daily range): BP systolic 140–205; BP diastolic 49–99
[2019-02-09] MEDS: IPRATROPIUM/ALBUTEROL 0.5-3(2.5)MG/3ML NEB INH SCH ×4 (01:55→21:57)
[2019-02-09] MEDS: HYDRALAZINE 20MG/ML VIAL IV PRN ×2 (02:23→10:05)
[2019-02-09] MEDS: CLONIDINE 0.1MG TABLET PO PRN (04:28)
[2019-02-09 06:56] LABS: HEMATOCRIT 28.7 % (36.0-48.0); HEMOGLOBIN 9.2 g/dL (12.0-16.0); MEAN CORPUSCULAR HEMOGLOBIN 29.4 pg (28.0-32.0); MEAN CORPUSCULAR VOLUME 91.8 fL (81.0-99.0); PLATELET 142 x1000/uL (130-400); RED BLOOD CELL COUNT 3.13 mill/uL (4.2-5.4); RED CELL DISTRIBUTION WIDTH 17.6 % (11.6-14.6)
[2019-02-09] MEDS: CLONIDINE 0.1MG TABLET PO SCH ×3 (07:01→22:50)
[2019-02-09] MEDS: BLOOD SUGAR DIAGNOSTIC STRIP TEST SCH ×4 (07:30→21:00)
[2019-02-09] MEDS: CITRIC ACID/SODIUM CITRATE SOLN 15ML UDC PO SCH ×3 (08:40→16:43)
[2019-02-09] MEDS: METHYLPREDNISOLONE SOD SUCC 40 MG/ML VIAL IV SCH (08:40)
[2019-02-09] MEDS: MYCOPHENOLATE MOFETIL 500MG TABLET PO SCH ×2 (08:40→22:48)
[2019-02-09] MEDS: FAMOTIDINE 20MG/2ML VIAL IV SCH (08:40)
[2019-02-09] MEDS: AMLODIPINE 5MG TABLET PO SCH ×2 (08:41→22:50)
[2019-02-09] MEDS: TACROLIMUS 1MG CAPSULE PO SCH ×2 (08:42→16:44)
[2019-02-09] MEDS: INSULIN LISPRO 100 UNITS/ML SUBCUT SCH ×4 (09:06→23:31)
[2019-02-09] MEDS ORDERED: SODIUM BICARBONATE 4% (2.4MEQ) 5ML VIAL IV ONE (10:51)
[2019-02-09] MEDS: LEVOFLOXACIN 250MG PREMIX 50 ML IV SCH (13:37)
[2019-02-09] MEDS: HYDRALAZINE HCL 50MG TABLET PO SCH ×2 (13:38→22:49)
[2019-02-09 15:37] LABS: BG BASE EXCESS -3.4 mmol/L (-2.0-2.0); BG CARBOXYHEMOGLOBIN 0.5 % (0.5-1.5); BG DEOXYHEMOGLOBIN 10.5 % (0.0-5.0); BG METHEMOGLOBIN 0.1 % (0.0-1.5); BG OXYGEN SATURATION 89.4 % (92.0-98.5); BG OXYHEMOGLOBIN 88.9 % (94.0-97.0); BG PCO2 40.6 mmHg (35.0-45.0); BG PH 7.351 (7.350-7.450); BG PO2 58.1 mmHg (75.0-100.0); BG SAMPLE SITE LEFT BRACHIAL; BG TOTAL HEMOGLOBIN 10.6 g/dL (12.0-18.0); BG VENT MODE ROOM AIR
[2019-02-09] MEDS: PREDNISONE 5MG TABLET PO SCH (16:43)
[2019-02-10] VITALS (11 sets, daily range): BP systolic 147–187; BP diastolic 46–77
[2019-02-10] MEDS: IPRATROPIUM/ALBUTEROL 0.5-3(2.5)MG/3ML NEB INH SCH ×5 (02:52→22:52)
[2019-02-10] MEDS: HYDRALAZINE 20MG/ML VIAL IV PRN ×2 (03:27→15:42)
[2019-02-10] MEDS: CLONIDINE 0.1MG TABLET PO SCH ×4 (03:28→17:46)
[2019-02-10] MEDS: HYDRALAZINE HCL 50MG TABLET PO SCH ×3 (06:19→21:08)
[2019-02-10] MEDS: BLOOD SUGAR DIAGNOSTIC STRIP TEST SCH ×4 (07:56→21:07)
[2019-02-10 08:44] LABS: HEMATOCRIT 30.9 % (36.0-48.0); MEAN CORPUSCULAR HEMOGLOBIN 29.2 pg (28.0-32.0); MEAN CORPUSCULAR VOLUME 90.6 fL (81.0-99.0); PLATELET 111 x1000/uL (130-400); RED BLOOD CELL COUNT 3.41 mill/uL (4.2-5.4); RED CELL DISTRIBUTION WIDTH 17.2 % (11.6-14.6)
[2019-02-10] MEDS ORDERED: METHYLPREDNISOLONE SOD SUCC 40 MG/ML VIAL IV SCH (09:00)
[2019-02-10] MEDS: FAMOTIDINE 20MG/2ML VIAL IV SCH (09:50)
[2019-02-10] MEDS: AMLODIPINE 5MG TABLET PO SCH ×2 (09:50→21:02)
[2019-02-10] MEDS: MYCOPHENOLATE MOFETIL 500MG TABLET PO SCH ×2 (09:50→21:06)
[2019-02-10] MEDS: TACROLIMUS 1MG CAPSULE PO SCH ×2 (09:50→17:46)
[2019-02-10] MEDS: PREDNISONE 5MG TABLET PO SCH (09:50)
[2019-02-10] MEDS: INSULIN LISPRO 100 UNITS/ML SUBCUT SCH ×4 (09:52→21:07)
[2019-02-10] MEDS: CITRIC ACID/SODIUM CITRATE SOLN 15ML UDC PO SCH ×3 (09:55→17:47)
[2019-02-10] MEDS ORDERED: SODIUM BICARBONATE 4% (2.4MEQ) 5ML VIAL IV ONE (10:45)
[2019-02-11] VITALS (12 sets, daily range): BP systolic 123–183; BP diastolic 42–96
[2019-02-11] MEDS: CLONIDINE 0.1MG TABLET PO SCH ×5 (00:37→23:06)
[2019-02-11] MEDS: IPRATROPIUM/ALBUTEROL 0.5-3(2.5)MG/3ML NEB INH SCH ×4 (02:31→21:17)
[2019-02-11] MEDS: HYDRALAZINE HCL 50MG TABLET PO SCH ×3 (06:22→21:11)
[2019-02-11 07:28] LABS: HEMATOCRIT 31.9 % (36.0-48.0); HEMOGLOBIN 10.3 g/dL (12.0-16.0); MEAN CORPUSCULAR HEMOGLOBIN 29.5 pg (28.0-32.0); MEAN CORPUSCULAR VOLUME 91.4 fL (81.0-99.0); PLATELET 117 x1000/uL (130-400); RED CELL DISTRIBUTION WIDTH 17.1 % (11.6-14.6)
[2019-02-11] MEDS: BLOOD SUGAR DIAGNOSTIC STRIP TEST SCH ×4 (07:30→21:00)
[2019-02-11] MEDS: CITRIC ACID/SODIUM CITRATE SOLN 15ML UDC PO SCH ×3 (08:33→18:30)
[2019-02-11] MEDS: AMLODIPINE 5MG TABLET PO SCH ×2 (08:35→21:12)
[2019-02-11] MEDS: MYCOPHENOLATE MOFETIL 500MG TABLET PO SCH ×2 (08:35→21:05)
[2019-02-11] MEDS: TACROLIMUS 1MG CAPSULE PO SCH ×2 (08:35→18:30)
[2019-02-11] MEDS: PREDNISONE 5MG TABLET PO SCH (08:35)
[2019-02-11] MEDS: FAMOTIDINE 20MG/2ML VIAL IV SCH (08:35)
[2019-02-11] MEDS: INSULIN LISPRO 100 UNITS/ML SUBCUT SCH ×4 (08:46→21:21)
[2019-02-11] MEDS: LEVOFLOXACIN 500MG TABLET PO SCH (11:19)
[2019-02-11] MEDS ORDERED: INSULIN GLARGINE UD 100 UNITS/ML SYR SUBCUT SCH (22:00)
[2019-02-12] VITALS (22 sets, daily range): BP systolic 98–141; BP diastolic 31–80
[2019-02-12] MEDS: IPRATROPIUM/ALBUTEROL 0.5-3(2.5)MG/3ML NEB INH SCH ×4 (02:35→22:08)
[2019-02-12] MEDS: HYDRALAZINE HCL 50MG TABLET PO SCH ×3 (05:35→22:37)
[2019-02-12] MEDS: CLONIDINE 0.1MG TABLET PO SCH ×3 (05:35→17:57)
[2019-02-12 06:41] LABS: HEMATOCRIT. 30.6 % (36.0-48.0); HEMOGLOBIN. 9.8 g/dL (12.0-16.0); MEAN CORPUSCULAR VOLUME 90.6 fL (81.0-99.0); MEAN PLATELET VOLUME 9.7 fl (7.4-10.4); PLATELET 117 x1000/uL (130-400); RED BLOOD CELL COUNT 3.38 mill/uL (4.2-5.4); RED CELL DISTRIBUTION WIDTH 17.1 % (11.6-14.6)
[2019-02-12 06:59] LABS: CHLORIDE 108 mEq/L (98-107)
[2019-02-12] MEDS: INSULIN LISPRO 100 UNITS/ML SUBCUT SCH ×4 (08:00→20:19)
[2019-02-12] MEDS: BLOOD SUGAR DIAGNOSTIC STRIP TEST SCH ×4 (08:05→20:06)
[2019-02-12] MEDS: FAMOTIDINE 20MG/2ML VIAL IV SCH (08:06)
[2019-02-12] MEDS ORDERED: FENTANYL CITRATE/PF 50MCG/ML 2ML VIAL ONE (08:07)
[2019-02-12] MEDS ORDERED: LIDOCAINE HCL 1% 20ML VIAL (Pyxis) INJ ONE (08:14)
[2019-02-12] MEDS ORDERED: SODIUM BICARBONATE 4% (2.4MEQ) 5ML VIAL IV ONE (08:14)
[2019-02-12] MEDS: CITRIC ACID/SODIUM CITRATE SOLN 15ML UDC PO SCH ×3 (09:00→17:00)
[2019-02-12] MEDS ORDERED: FENTANYL CITRATE/PF 50MCG/ML 2ML VIAL IV ONE ×2 (09:00)
[2019-02-12] MEDS: AMLODIPINE 5MG TABLET PO SCH (09:00)
[2019-02-12] MEDS: TACROLIMUS 1MG CAPSULE PO SCH ×2 (09:00→17:47)
[2019-02-12] MEDS: MYCOPHENOLATE MOFETIL 500MG TABLET PO SCH ×2 (09:00→20:19)
[2019-02-12 11:40] LABS: HEMATOCRIT 29.4 % (36.0-48.0); HEMOGLOBIN 9.4 g/dL (12.0-16.0)
[2019-02-12] MEDS: PREDNISONE 5MG TABLET PO SCH (13:42)
[2019-02-12] MEDS: ALBUMIN HUMAN 12.5GM/50ML (25%) IV SCH (13:42)
[2019-02-12] MEDS: DOCUSATE SODIUM 100MG CAPSULE PO SCH ×2 (15:30→17:00)
[2019-02-12] MEDS ORDERED: HYDROCODONE/ACETAMINOPHEN 5/325MG TABLET PO PRN (15:30)
[2019-02-12 20:09] LABS: PLATELET ESTIMATE DECREASED
[2019-02-12] MEDS: INSULIN GLARGINE UD 100 UNITS/ML SYR SUBCUT SCH (22:35)
[2019-02-13] VITALS (11 sets, daily range): BP systolic 116–187; BP diastolic 41–68
[2019-02-13] MEDS: CLONIDINE 0.1MG TABLET PO SCH ×5 (00:58→23:20)
[2019-02-13] MEDS: ALBUMIN HUMAN 12.5GM/50ML (25%) IV SCH ×2 (01:00→13:51)
[2019-02-13] MEDS: IPRATROPIUM/ALBUTEROL 0.5-3(2.5)MG/3ML NEB INH SCH ×4 (01:36→21:24)
[2019-02-13] MEDS: HYDRALAZINE HCL 50MG TABLET PO SCH ×3 (06:34→20:42)
[2019-02-13 07:06] LABS: HEMATOCRIT. 27.3 % (36.0-48.0); MEAN CORPUSCULAR HEMOGLOBIN 29.7 pg (28.0-32.0); MEAN CORPUSCULAR VOLUME 90.3 fL (81.0-99.0); MEAN PLATELET VOLUME 9.7 fl (7.4-10.4); PLATELET 107 x1000/uL (130-400); RED BLOOD CELL COUNT 3.02 mill/uL (4.2-5.4); RED CELL DISTRIBUTION WIDTH 17.3 % (11.6-14.6)
[2019-02-13] MEDS: INSULIN LISPRO 100 UNITS/ML SUBCUT SCH ×4 (08:00→20:49)
[2019-02-13] MEDS: BLOOD SUGAR DIAGNOSTIC STRIP TEST SCH ×4 (08:18→20:42)
[2019-02-13] MEDS: CITRIC ACID/SODIUM CITRATE SOLN 15ML UDC PO SCH ×3 (08:32→17:15)
[2019-02-13] MEDS: TACROLIMUS 1MG CAPSULE PO SCH ×2 (08:32→17:14)
[2019-02-13] MEDS: MYCOPHENOLATE MOFETIL 500MG TABLET PO SCH ×2 (08:32→20:42)
[2019-02-13] MEDS: DOCUSATE SODIUM 100MG CAPSULE PO SCH ×2 (08:32→17:14)
[2019-02-13] MEDS: PREDNISONE 5MG TABLET PO SCH (08:32)
[2019-02-13] MEDS: FAMOTIDINE 20MG/2ML VIAL IV SCH (08:32)
[2019-02-13] MEDS: AMLODIPINE 5MG TABLET PO SCH (08:37)
[2019-02-13 10:35] LABS: PLATELET ESTIMATE SLIGHTLY DECREASED
[2019-02-13] MEDS: LEVOFLOXACIN 500MG TABLET PO SCH (11:38)
[2019-02-13] MEDS: SODIUM CHLORIDE 0.9% 1,000 ML IV SCH (13:34)
[2019-02-13] MEDS: CLONIDINE 0.1MG TABLET PO PRN (20:42)
[2019-02-13] MEDS: INSULIN GLARGINE UD 100 UNITS/ML SYR SUBCUT SCH (20:50)
[2019-02-14] VITALS (9 sets, daily range): BP systolic 127–190; BP diastolic 38–117
[2019-02-14] MEDS: IPRATROPIUM/ALBUTEROL 0.5-3(2.5)MG/3ML NEB INH SCH ×4 (02:50→22:19)
[2019-02-14] MEDS: ALBUMIN HUMAN 12.5GM/50ML (25%) IV SCH (03:15)
[2019-02-14] MEDS: CLONIDINE 0.1MG TABLET PO SCH ×3 (05:54→18:35)
[2019-02-14] MEDS: HYDRALAZINE HCL 50MG TABLET PO SCH ×3 (05:55→20:51)
[2019-02-14 07:32] LABS: HEMATOCRIT. 26.2 % (36.0-48.0); HEMOGLOBIN. 8.5 g/dL (12.0-16.0); MEAN CORPUSCULAR HEMOGLOBIN 29.4 pg (28.0-32.0); MEAN CORPUSCULAR VOLUME 90.4 fL (81.0-99.0); MEAN PLATELET VOLUME 9.6 fl (7.4-10.4); PLATELET 93 x1000/uL (130-400); RED CELL DISTRIBUTION WIDTH 17.6 % (11.6-14.6)
[2019-02-14 07:46] LABS: CHLORIDE 106 mEq/L (98-107)
[2019-02-14] MEDS: INSULIN LISPRO 100 UNITS/ML SUBCUT SCH ×4 (08:00→22:06)
[2019-02-14] MEDS: BLOOD SUGAR DIAGNOSTIC STRIP TEST SCH ×4 (08:01→21:00)
[2019-02-14 08:09] LABS: PHOSPHORUS 5.9 mg/dL (2.5-4.9)
[2019-02-14] MEDS: FAMOTIDINE 20MG/2ML VIAL IV SCH (08:22)
[2019-02-14] MEDS: MYCOPHENOLATE MOFETIL 500MG TABLET PO SCH ×2 (08:22→20:51)
[2019-02-14] MEDS: DOCUSATE SODIUM 100MG CAPSULE PO SCH ×2 (08:22→18:36)
[2019-02-14] MEDS: SODIUM CHLORIDE 0.9% 1,000 ML IV SCH (08:22)
[2019-02-14] MEDS: CITRIC ACID/SODIUM CITRATE SOLN 15ML UDC PO SCH ×3 (08:22→18:35)
[2019-02-14] MEDS: TACROLIMUS 1MG CAPSULE PO SCH ×2 (08:32→18:35)
[2019-02-14] MEDS: PREDNISONE 5MG TABLET PO SCH (08:32)
[2019-02-14] MEDS: AMLODIPINE 5MG TABLET PO SCH (08:33)
[2019-02-14 10:48] LABS: PLATELET ESTIMATE SLIGHTLY DECREASED
[2019-02-15] VITALS: BP 189/48
[2019-02-15] MEDS: CLONIDINE 0.1MG TABLET PO SCH ×3 (01:23→12:38)
[2019-02-15] MEDS: INSULIN GLARGINE UD 100 UNITS/ML SYR SUBCUT SCH ×2 (01:27→22:01)
[2019-02-15 04:00] VITALS: BP 156/63
[2019-02-15] MEDS: IPRATROPIUM/ALBUTEROL 0.5-3(2.5)MG/3ML NEB INH SCH ×4 (05:16→20:38)
[2019-02-15] MEDS: HYDRALAZINE HCL 50MG TABLET PO SCH ×3 (05:31→21:59)
[2019-02-15 08:01] VITALS: BP 142/33
[2019-02-15] MEDS: INSULIN LISPRO 100 UNITS/ML SUBCUT SCH ×4 (08:10→22:00)
[2019-02-15] MEDS: DOCUSATE SODIUM 100MG CAPSULE PO SCH ×2 (08:37→18:17)
[2019-02-15] MEDS: TACROLIMUS 1MG CAPSULE PO SCH ×2 (08:37→18:04)
[2019-02-15] MEDS: MYCOPHENOLATE MOFETIL 500MG TABLET PO SCH ×2 (08:37→21:59)
[2019-02-15] MEDS: AMLODIPINE 5MG TABLET PO SCH (08:37)
[2019-02-15] MEDS: PREDNISONE 5MG TABLET PO SCH (08:37)
[2019-02-15] MEDS: BLOOD SUGAR DIAGNOSTIC STRIP TEST SCH ×4 (08:38→21:49)
[2019-02-15] MEDS: FAMOTIDINE 20MG/2ML VIAL IV SCH (09:00)
[2019-02-15] MEDS: CITRIC ACID/SODIUM CITRATE SOLN 15ML UDC PO SCH ×3 (10:47→18:04)
[2019-02-15 11:57] VITALS: BP 207/54
[2019-02-15] MEDS ORDERED: FUROSEMIDE 20MG/2ML VIAL IVP NR (12:45)
[2019-02-15 17:06] VITALS: BP 130/92
[2019-02-15] MEDS: CLONIDINE 0.2MG TABLET PO SCH ×2 (18:12→21:59)
[2019-02-15 20:00] VITALS: BP 172/63
[2019-02-15 21:41] LABS: HEMATOCRIT. 25.9 % (36.0-48.0); HEMOGLOBIN. 8.4 g/dL (12.0-16.0); MEAN CORPUSCULAR HEMOGLOBIN 29.9 pg (28.0-32.0); PLATELET 91 x1000/uL (130-400); RED BLOOD CELL COUNT 2.82 mill/uL (4.2-5.4); RED CELL DISTRIBUTION WIDTH 17.3 % (11.6-14.6)
[2019-02-15 21:56] LABS: PLATELET ESTIMATE DECREASED
[2019-02-16] VITALS: BP 154/55
[2019-02-16] MEDS: IPRATROPIUM/ALBUTEROL 0.5-3(2.5)MG/3ML NEB INH SCH ×2 (01:40→10:06)
[2019-02-16 04:00] VITALS: BP 152/56
[2019-02-16] MEDS: BLOOD SUGAR DIAGNOSTIC STRIP TEST SCH ×3 (06:37→17:25)
[2019-02-16] MEDS: HYDRALAZINE HCL 50MG TABLET PO SCH (06:41)
[2019-02-16] MEDS: CLONIDINE 0.2MG TABLET PO SCH ×2 (06:42→14:07)
[2019-02-16 08:00] VITALS: BP 173/50
[2019-02-16] MEDS: INSULIN LISPRO 100 UNITS/ML SUBCUT SCH ×3 (08:10→17:25)
[2019-02-16] MEDS: DOCUSATE SODIUM 100MG CAPSULE PO SCH ×2 (08:57→17:24)
[2019-02-16] MEDS: AMLODIPINE 5MG TABLET PO SCH (08:57)
[2019-02-16] MEDS: FAMOTIDINE 20MG/2ML VIAL IV SCH (08:57)
[2019-02-16] MEDS: MYCOPHENOLATE MOFETIL 500MG TABLET PO SCH (08:57)
[2019-02-16] MEDS: CITRIC ACID/SODIUM CITRATE SOLN 15ML UDC PO SCH ×3 (09:04→17:27)
[2019-02-16] MEDS: PREDNISONE 5MG TABLET PO SCH (09:28)
[2019-02-16] MEDS: TACROLIMUS 1MG CAPSULE PO SCH ×2 (09:28→17:23)
[2019-02-16 12:00] VITALS: BP 132/49
[2019-02-16] MEDS ORDERED: HYDRALAZINE HCL 100MG TABLET PO SCH (14:00)
[2019-02-16 16:00] VITALS: BP 134/43
[2019-02-16 17:36] VITALS: BP 134/43
[2019-02-16] MEDS ORDERED: AMLODIPINE 5MG TABLET PO SCH (21:00)
== END 2019-02-16 20:27 | DRG 871 ==
LOC: ER 10:57 → EDBEDREQ 15:54 → EDBEDREQSVC 15:54 → EDBEDREQTM 15:54 → ENRESERV 20:36 → 5EST 02-06 00:36 → 7WST 02-14 17:42
PROVIDERS: ADMIT Internal Medicine; ATTEND Internal Medicine
PROC: 02HV33Z Insertion of Infusion Device into Superior Vena Cava, Percutaneous Approach (ICD-10-PCS; 2019-02-05)
PROC: B5181ZA Fluoroscopy of Superior Vena Cava using Low Osmolar Contrast, Guidance (ICD-10-PCS; 2019-02-05)
PROC: B548ZZA Ultrasonography of Superior Vena Cava, Guidance (ICD-10-PCS; 2019-02-05)
PROC: 5A09357 Assistance with Respiratory Ventilation, Less than 24 Consecutive Hours, Continuous Positive Airway Pressure (ICD-10-PCS; 2019-02-05)
PROC: 5A09357 Assistance with Respiratory Ventilation, Less than 24 Consecutive Hours, Continuous Positive Airway Pressure (ICD-10-PCS; 2019-02-07)
PROC: 0W993ZZ Drainage of Right Pleural Cavity, Percutaneous Approach (ICD-10-PCS; 2019-02-09)
PROC: 30233N1 Transfusion of Nonautologous Red Blood Cells into Peripheral Vein, Percutaneous Approach (ICD-10-PCS; 2019-02-09)
PROC: 0W9B3ZZ Drainage of Left Pleural Cavity, Percutaneous Approach (ICD-10-PCS; principal; 2019-02-10)
PROC: 0TB04ZX Excision of Right Kidney, Percutaneous Endoscopic Approach, Diagnostic (ICD-10-PCS; 2019-02-12)
DX: A41.9 Sepsis, unspecified organism (principal); G93.41 Metabolic encephalopathy; N17.0 Acute kidney failure with tubular necrosis; J18.1 Lobar pneumonia, unspecified organism; J96.01 Acute respiratory failure with hypoxia; J96.02 Acute respiratory failure with hypercapnia; I31.3 Pericardial effusion (noninflammatory); E87.0 Hyperosmolality and hypernatremia; E87.4 Mixed disorder of acid-base balance; I13.2 Hypertensive heart and chronic kidney disease with heart failure and with stage 5 chronic kidney disease, or end stage renal disease; E72.4 Disorders of ornithine metabolism; N18.4 Chronic kidney disease, stage 4 (severe); I82.721 Chronic embolism and thrombosis of deep veins of right upper extremity; Z94.0 Kidney transplant status; K72.90 Hepatic failure, unspecified without coma; E86.0 Dehydration; E87.5 Hyperkalemia; I50.9 Heart failure, unspecified; E11.22 Type 2 diabetes mellitus with diabetic chronic kidney disease; D64.9 Anemia, unspecified; E11.649 Type 2 diabetes mellitus with hypoglycemia without coma; I27.20 Pulmonary hypertension, unspecified; E11.40 Type 2 diabetes mellitus with diabetic neuropathy, unspecified; Z99.2 Dependence on renal dialysis; Z99.81 Dependence on supplemental oxygen; Z88.0 Allergy status to penicillin; Z88.8 Allergy status to other drugs, medicaments and biological substances; Z79.4 Long term (current) use of insulin
CPT/HCPCS: 32555; 36415; 36569; 36573; 36600; 71045; 71250; 76604; 76942; 80048; 80061; 80197; 80305; 82010; 82040; 82140; 82375; 82550; 82553; 82570; 82805; 82962; 83605; 83615; 83880; 84100; 84300; 84315; 84439; 84443; 84484; 85014; 85018; 85027; 86300; 86850; 86900; 86920; 88108; 88305; 88312; 88346; 88348; 93005; 93971; 94640; 94660; 96374; 96375; 97110; 97116; 97163; 97530; 99291; A6261; C1725; J0360; J0885; J1815; J1940; J1956; J2920; J3010; J3490; J7030; J7050; J7070; J7507; J7512; J7517; J7620; P9016; P9047